=== PATIENT | female | born 1930 | race American Indian/Alaskan Native ===

== ENCOUNTER 2017-09-22 11:27 | Outpatient (CLI) | payer OTHER ==
[2017-09-22] MEDS ORDERED: PROTONIX20 MG PO (13:41)
[2017-09-22] MEDS ORDERED: NIFE30TA PO (13:41)
[2017-09-22] MEDS ORDERED: REMERON SOLTAB15 MG OR (13:41)
[2017-09-22] MEDS ORDERED: LORA0.5T17 PO (13:42)
[2017-09-22] MEDS ORDERED: MELATONIN5 M2 OR (13:42)
== END 2017-09-22 11:31 | disposition short-term general hospital (02) ==
LOC: AMB 11:27
DX: R06.09 Other forms of dyspnea (principal)
CPT/HCPCS: A0425; A0429

== ENCOUNTER 2017-09-22 11:39 | Inpatient (IN) | payer OTHER ==
[~2017-09-22] VITALS: Ht 165.1 cm; Wt 50.9 kg
[2017-09-22] VITALS (12 sets, daily range): BP systolic 67–122; BP diastolic 55–73; TEMP 98.4–98.6; Ht 165.1 cm; Wt 50.9 kg
--- NOTE | 2017-09-22 11:35 | NUR ---
PT ARRIVES TO ICU VIA STRETCHER DIRECT ADMIT FROM DR GAGE OFFICE BY [facility]. PT IS DROWSY BUT WHEN AROUSED CAN ANSWER QUESTIONS AND IS ORIENTED.
--- NOTE | 2017-09-22 12:30 | NUR ---
ADMISSION ASSESSMENT COMPLETED AND PT SETTLED INTO BED, PASSWORD ESTABLISHED WITH PT'S SON VASQUEZ AND IS "JOCAR." INFORMATION GIVEN TO FAMILY ON ICU VISITING HOURS. PT'S SON STATES THAT PT DOES HAVE A LIVING WILL AND HE IS GOING TO BRING A COPY OF IT TO HOSPITAL BECUASE HE IS UNSURE IF A DNR IS PART OF IT OR NOT. PT RESTING WITH EYES CLOSED. WILL CONT. TO MONITOR.
--- NOTE | 2017-09-22 13:00 | NUR ---
RT AT BEDSIDE PERFORMING EKG.
[2017-09-22 13:17] LABS: PLATELET COUNT 353 K/uL (152-353)
[2017-09-22] MEDS ORDERED: NIFE30TA PO (13:41)
[2017-09-22] MEDS ORDERED: REMERON SOLTAB15 MG OR (13:41)
[2017-09-22] MEDS ORDERED: PROTONIX20 MG PO (13:41)
[2017-09-22] MEDS ORDERED: LORA0.5T17 PO (13:42)
[2017-09-22] MEDS ORDERED: MELATONIN5 M2 OR (13:42)
[2017-09-22 14:30] LABS: POTASSIUM 4.6 mmol/L (3.6-5.2); SODIUM 129 mmol/L (136-145)
--- NOTE | 2017-09-22 18:35 | NUR ---
NOTIFIED DR ALANIS THAT PT O2 SAT CONTINUES TO DECREASE DESPITE TITRATING O2 UP, NEW ORDERS RECEIVED, PT BEING PLACED ON BIPAP PER RT AT THIS TIME. FAMILY MEMBER AT BEDSIDE.
--- NOTE | 2017-09-22 20:00 | NUR ---
RESPIRATORY AT BS ADMINISTERING ALBUTEROL TX. PT TOLERATING PROCEDURE WELL. NAD NOTED.
--- NOTE | 2017-09-22 20:56 | NUR ---
RESPIRATORY AT BS TO ATTEMPT TO APPLY BIPAP. GRANDDAUGHTER AT BS. PT TOLERATING PROCEDURE WELL.
--- NOTE | 2017-09-22 21:58 | NUR ---
RESPIRATORY AT BS TO REAPPLY BIPAP MACHINE. PT SHOWS SIGNS OF AGITATION AND TRYING TO PULL AT MASK.
--- NOTE | 2017-09-22 22:17 | NUR ---
MULTIPLE ATTEMPTS HAVE BEEN MADE TO GET PT TO BE COMPLIANT WITH BIPAP THERAPY. SHE WILL WEAR FOR ONLY A SMALL AMOUNT OF TIME, USUALLY 10 INUTES AND BEGINS TO REMOVE BIPAP. SHE ALSO STATES THAT THE BIPAP MAKES HER FEEL LIKE SHE IS SMOTHERING. ICU NURSES AWARE. ICU NURSING PLANNING ON CONTACTING DR. ALANIS TO MAKE HER AWARE THAT PT IS NOT TOLERATING BIPAP.
[2017-09-23] VITALS (25 sets, daily range): BP systolic 11–120; BP diastolic 45–62; TEMP 97.6–99
--- NOTE | 2017-09-23 00:46 | NUR ---
MADE ATTEMPTS TO PROVIDE BIPAP THERAPY. PT CONTINUES TOTAKE HER HANDS AND REMOVE BIPAP FACE MASK AWAY FROM HER FACE. REPLACED ON N/C @ 5 LPM. SPO2 98%. NURSE ARTURO MAC AWARE AND WILL CONTACT DR. ALANIS.
[2017-09-23 06:48] LABS: PLATELET COUNT 336 K/uL (152-353)
[2017-09-23 07:22] LABS: POTASSIUM 3.5 mmol/L (3.6-5.2); SODIUM 138 mmol/L (136-145)
--- NOTE | 2017-09-23 07:55 | NUR ---
NOTE AFTER NEB TREATMENTS PT IS RESTLESS, FIDGETING WITH WIRES ON O2 AND B/P MONITOR, PT ALSO STARTS PULLING OFF NC, HEART RATE INCREASES FROM 90-105 TO AROUND 115-120 AFTER TREATMENT. PT STILL WILL NOT ALLOW RESP STAFF TO PUT BIPAP ON, PUSHES IT AWAY AND SAYS NO.
--- NOTE | 2017-09-23 07:58 | NUR ---
09/23/17 AT [facility] WILL NOT ALLOW RESPIRATORY TO PUT BIPAP ON, PULLS AT MASK AND STATES "NO" AND "WAIT".
--- NOTE | 2017-09-23 08:02 | NUR ---
RESP DEPT HERE EXPLAINED TO PT NEED FOR BIPAP. ATTEMPT TO PUT BIPAP ON PT SAID NO, PUSHED AWAY, NOTED MONITOR HR 150. ST. LEFT BIPAP OFF HR IMMEDIATELY CAME DOWN TO 95 WILL MONITOR CLOSELY.
--- NOTE | 2017-09-23 08:06 | NUR ---
09/23/17 AT 0200PT STILL WILL NOT ALLOW RESPIRATORY TO PUT BIPAP ON, PT ON 5LPM VIA NC WITH O2 SAT OF 97-98%, NO DISTRESS NOTED, WILL MONITOR CLOSELY.
--- NOTE | 2017-09-23 08:43 | NUR ---
PT PULLING MONITOR WIRES OFF PULSE OX OFF. WILL NOT WEAR O2 SAT DROPPED TO 88% CONFUSED. PT RECIEVED ATIVAN IV FOR AGITATION REPLACED O2.
--- NOTE | 2017-09-23 08:50 | NUR ---
CRISTELA ANGEL RN CALLED TO DR ALANIS REPORT PT CONDITION. REPORT THAT PT HAD REFUSED BIPAP. WILL MAKE CALL TO FAMILY. REQUEST BY DR ALANIS. SAT 96% WEARING 02.
--- NOTE | 2017-09-23 12:01 | NUR ---
SPOKE WITH DR. ALANIS ON THE PHONE, CHANGED MED ORDER TO ATIVAN 1 MG PRN AND ONCE NOW, STATED TO PUT PT BACK ON BIPAP AT A RATE OF 16.
--- NOTE | 2017-09-23 15:14 | NUR ---
CALLED DR ALANIS ABOUT PTS ABG RESULTS. INSTRUCTED TO INCREASE PRESSURE OF BIPAP, AND RATE. PT RESTING COMFORTABLY AT THIS TIME
--- NOTE | 2017-09-23 17:22 | NUR ---
DR ALANIS HERE. PT RESTING QUIETLY PT ON BIPAP, WILL OCCASIONALLY TRY TO PULL AT BIPAP. CONTINUE TO REMIND PT NOT TO PULL ON BIPAP. RECIEVED ATIVAN EARLIER, MED EFFECTIVE.
--- NOTE | 2017-09-23 21:12 | NUR ---
Pt. PULLING OFF BIPAP MASK AND RESTLESS. ATIVAN 0.5MG GIVEN SLOW IV PUSH.
--- NOTE | 2017-09-23 21:52 | NUR ---
Pt. RESTING WITH EYES CLOSED. NO FURTHER RESTLESSNESS.
--- NOTE | 2017-09-23 23:35 | NUR ---
ATIVAN 0.5MG GIVEN SLOW IV PUSH. Pt. PULL OFF BIPAP.
[2017-09-24] VITALS (24 sets, daily range): BP systolic 87–138; BP diastolic 41–77; TEMP 98–99.3
--- NOTE | 2017-09-24 06:10 | NUR ---
ATIVAN 0.5MG GIVEN FOR ANXIETY. Pt. PULLING BIPAP OFF.
--- NOTE | 2017-09-24 07:00 | NUR ---
RESTING WITH BIPAP INTACT. NO MOVING AROUND IN BED
[2017-09-24 07:34] LABS: PLATELET COUNT 321 K/uL (152-353)
[2017-09-24 07:59] LABS: POTASSIUM 4.5 mmol/L (3.6-5.2); SODIUM 138 mmol/L (136-145)
--- NOTE | 2017-09-24 10:00 | NUR ---
PTS FAMILY AT BEDSIDE, WITH KENDELL WHO IS THE HEALTHCARE [employer]OXY. SPOKE WITH DR. ALANIS, SAYS SHE WILL BE BACK TO SPEAK WITH THEM IN 2 AND HALF HOURS.
--- NOTE | 2017-09-24 15:30 | NUR ---
INSTRUCTED BY DR. ALANIS TO CHANGE PT FROM BIPAP TO NASAL CANULA. PT TOLERATING WELL WITH O2 AT 3 LPM, WITH SATURATION OF 94% PTS FAMILY MEMBERS AT BEDSIDE
--- NOTE | 2017-09-24 16:05 | NUR ---
PREFORMED FSBS DUE TO LIPIDS RUNNING, GLUCOSE AT 144
--- NOTE | 2017-09-24 21:00 | NUR ---
DR. ALANIS CALL TO CHECK ON Pt. PLACE Pt. ON BIPAP IF O2 STAT DROP.
[2017-09-25] VITALS (20 sets, daily range): BP systolic 93–153; BP diastolic 55–90; TEMP 97.3–98
--- NOTE | 2017-09-25 06:00 | NUR ---
O2 SAT REMAINED 93 TO 96%
[2017-09-25 08:32] LABS: PLATELET COUNT 331 K/uL (152-353)
[2017-09-25 09:52] LABS: POTASSIUM 4.4 mmol/L (3.6-5.2); SODIUM 138 mmol/L (136-145)
--- NOTE | 2017-09-25 10:30 | NUR ---
CALLED AND SPOKE TO DR. ALANIS ABOUT PTS BREATHING. PTS RESPIRATIONS WERE 38-40 WITH ACCESSORY MUSCLE USE AND HEART RATE 130. DR. ALANIS INSTRUCTED TO PUT PATIENT BACK ON BIPAP, OBTAIN ABG'S 30 MINUTES AFTER BIPAP PLACEMENT AND A NEW CHEST X RAY.
--- NOTE | 2017-09-25 14:18 | NUR ---
INFORMED DR. ALANIS OF PTS X RAY RESULTS. ORDERED TO GIVE 10MG IV LASIX AND SMART VEST EVERY 4 HOURS.
--- NOTE | 2017-09-25 15:58 | NUR ---
PATIENTS SONS AT BEDSIDE WHEN DR. ALANIS CAME IN. PATIENTS FAMILY STATED THEY WANTED HER TAKEN OFF BIPAP AND MADE COMFORTABLE. DR. ALANIS TALKED WITH THE FAMILY MORE IN EXTENT ABOUT THEIR WISHES FOR THEIR MOTHER. BOTH SONS STATED THEY DID NOT WISH FOR THEIR MOTHER TO RECIEVE IV NUTRITION, BUT WOULD LIKE TO CONTINUE ANTIOBIOTIC THERAPY AND FEEDINGS AD TAMELA WHEN PATIENT ASKS FOR FOOD. TWO SONS AT THIS TIME SIGNED ORDERS FOR COMFORT CARE. MORPHINE AND MORPHINE NEBS PRESCRIBED FOR CARE AND COMFORT.
--- NOTE | 2017-09-25 20:00 | NUR ---
PM ASSESSMENT COMPLETED. PT IS RESTING WITH EYES CLOSED. PT IS COMFORT CARE STATUS. PRESENTLY PT IS RECEIVING LIPIDS AT 10.5 ML. PROCAL AT 83 ML/HR AND ANTIBIOTIC THERAPY. PT HAS STONE CATHETAR AND URINE IS DRAINING. ORAL CARE BEING PERFORMED. PT WAS TURNED AND REPOSITIONED. PT IS TO HER RIGHT SIDE.
[2017-09-26] VITALS (17 sets, daily range): BP systolic 100–154; BP diastolic 55–95; TEMP 97.8–99.1
--- NOTE | 2017-09-26 | NUR ---
ORAL CARE GIVEN. PT REPOSITIONED . PT WITH COMFORT MEASURE EFFORTS.
--- NOTE | 2017-09-26 04:47 | NUR ---
ORAL CARE GIVEN. PT RESPONDS WITH MOVEMENT AND PT MOANS OCCASSIONALLY. RESP TREATMENT WITH MORPHINE GIVEN PER RESP. PT REPOSITIONED UP. HOB ELEVATED.
[2017-09-26 06:19] LABS: PLATELET COUNT 363 K/uL (152-353)
[2017-09-26 06:28] LABS: POTASSIUM 4.7 mmol/L (3.6-5.2); SODIUM 138 mmol/L (136-145)
--- NOTE | 2017-09-26 07:00 | NUR ---
PT RESTING QUIETLY EYES CLOSED,RR RATE 30 WITH USE OF ABD MUSCLES. O2 SATS 97% ON O2 2T 3L/NC.
--- NOTE | 2017-09-26 10:00 | NUR ---
FAMILY IN TO VISIT. DEVANTE FROM HOSPICE INTO SEE PT TO EVALUATE ABOUT POSSIBLE PLACEMENT FOR HOSPICE.
--- NOTE | 2017-09-26 12:30 | NUR ---
PT RESTING QUIETLY UNLESS TURNED & REPOSITIONED .PT MOANS WHEN TURNED THEN GETS QUIET AGAIN. MOUTH CARE, CHUX CHANGED,BACK BATHED OFF,PERICARE.
--- NOTE | 2017-09-26 15:31 | NUR ---
ROBE MORENO NETWORK TECHNICAL ANALYST CALLED TO QUESTION PT'S STATUS T/T POSSIBLE ADMIT TO HOSPICE.
--- NOTE | 2017-09-26 15:52 | NUR ---
DEVANTE SMITH RN [facility] HERE,PT DOES NOT MEET CRITERIA FOR THE TYPE OF IN HOUSE HOSPICE THAT FAMILY WANTS. DR ALANIS AWARE.
--- NOTE | 2017-09-26 16:10 | NUR ---
TALKED WITH DR ALANIS ABOUT PT.NEW ORDERS TO TRANSFER PT TO MED SURG FLOOR,CARE & COMFORT ONLY.D/C TPN & LIPIDS. MED SURG FLOOR NOTIFIED. PT'S SONS HERE & AWARE.
--- NOTE | 2017-09-26 16:48 | NUR ---
PT CONT SAYING HELP ME, HELP ME. WHEN ASKED WHAT SHE NEEDS, PT ONLY SAYS HELP ME, PT IS NOT OPENING HER EYES AT THIS TIME
--- NOTE | 2017-09-26 17:36 | NUR ---
PT TRANSFERRED TO ROOM 1108. FAMILY INFORMED OF TRANSFER
--- NOTE | 2017-09-26 18:05 | NUR ---
REPORT TO TONY HEART RN.
--- NOTE | 2017-09-26 18:06 | NUR ---
RECEIVED REPORT FROM CINDY JAMES RN
--- NOTE | 2017-09-27 04:41 | NUR ---
PT BATHED AND CHANGED THIS AM. CATH SECURE PLACED ON RIGHT THIGH FOR STONE BAG. MOUTH CARE PREFORMED PT TOLERATED WELL. LFA IV D/C'D AND RAC IV D/C'D. 22G TO RFA LEFT FOR IV PAIN AND ANXIETY MEDICATIONS.
[2017-09-27 05:57] LABS: POTASSIUM 4.6 mmol/L (3.6-5.2); SODIUM 140 mmol/L (136-145)
[2017-09-27 06:16] LABS: PLATELET COUNT 554 K/uL (152-353)
[2017-09-27 08:23] VITALS: BP 89/53; TEMP 97.8
[2017-09-28 08:00] VITALS: BP 110/56; TEMP 98.6
--- NOTE | 2017-09-28 13:54 | NUR ---
CALLED TO ROOM BY FAMILY MEMBER. UPON ARRIVAL PT HAD NO RESPIRATIONS AND NO PULSE. PT IS A DNR SO NO MEASURES WERE TAKEN FOR REVIVAL. DR. ALANIS WAS NOTIFIED. DR. ALANIS CALLED TIME OF AT 1400. FAMILY IS AT BEDSIDE.
== END 2017-09-28 15:15 | disposition expired | DRG 871 ==
LOC: ICU 11:39 → MED/SURG 09-26 17:31
PROVIDERS: ADMIT Family Medicine
DX: A41.9 Sepsis, unspecified organism (principal); J12.89 Other viral pneumonia; J96.00 Acute respiratory failure, unspecified whether with hypoxia or hypercapnia; J44.1 Chronic obstructive pulmonary disease with (acute) exacerbation; E46 Unspecified protein-calorie malnutrition; I50.9 Heart failure, unspecified; R41.82 Altered mental status, unspecified; E86.0 Dehydration; Z74.1 Need for assistance with personal care; F41.8 Other specified anxiety disorders; K56.41 Fecal impaction
CPT/HCPCS: 36415; 36600; 51702; 80053; 81000; 82550; 82805; 82962; 83605; 83735; 83880; 84443; 84478; 84484; 85027; 87040; 93005; 94640; 94664; 94668; 94760; 96361; 96367; 96372; 96375; J1650; J1940; J2060; J2270; J3480; J3486; J3490; P9047